=== PATIENT | female | born 1955 | race Caucasian/White ===

== ENCOUNTER 2017-01-21 11:15 | Emergency (ER) | payer OTHER ==
[~2017-01-21] VITALS: Ht 160 cm; Wt 81.6 kg
[~2017-01-21 11:15] MED LIST: BISOPROLOL FUMA1 TA4 PO; COUMADIN 7.5 M7.5 MG PO; CRESTOR 10MG10 MG PO; IRON325 M1 PO; PERCOCET 325 MG1 TA2 PO
--- NOTE | 2017-01-21 11:59 | ED UPPER/LOWER EXTREMITY COMPL ---
History of Present Illness General Chief Complaint: Shoulder Injury Stated Complaint: TRIPPEN AND FELL, SHOULDER PAIN Source: patient Exam Limitations: no limitations Vital Signs & Intake/Output Vital Signs & Intake/Output Vital Signs Date Time Temp Pulse Resp B/P Pulse O2 O2 Flow FiO2 Ox Delivery Rate 01/21 1127 99.7 67 20 156/85 97 Room Air Allergies Coded Allergies: NO KNOWN ALLERGIES (08/27/14) Reconcile Medications BISOPROLOL FUMARATE/HCTZ (Bisoprolol-Hctz 5-6.25 MG Tab) 1 EACH TABLET 1 TAB PO DAILY BLOOD PRESSURE (Reported) Ferrous Sulfate 325 MG (65 MG IRON) TABLET 1 TAB PO DAILY SUPPLEMENT ( Reported) Hydrocodone/Acetaminophen (Vicodin 5-300 MG Tablet) 5 MG-300 MG TABLET 1 TAB PO BID PRN pain OXYCODONE HCL/ACETAMINOPHEN (Percocet 5-325 MG Tablet) 325 MG/5 MG TAB 1-2 TAB PO Q4P PRN PAIN Rosuvastatin Calcium (Crestor) 10 MG TABLET 1 TAB PO DAILY CHOLESTEROL ( Reported) Warfarin Sodium (Coumadin) 7.5 MG TABLET 1 TAB PO DAILY BLOOD THINNER DOSE FOR INR 2-3 Triage Note: PT TO ED C/O RIGHT SHOULDER PAIN S/P TRIP AND FALL YESTERDAY. FELL ONTO RIGHT SHOULDER. PT TOOK TYLENOL WITH SOME RELIEF. HAS BEEN USING ICE AND HEAT WELL. DENIES HEADSTRIKE WITH TRIP AND FALL. +CMS, +PULSES. PLACED IN SLING IN TRIAGE. 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 Triage Nurses Notes Reviewed? yes Onset: Abrupt Duration: day(s): (1) Timing: no prior history Severity: moderate Severity Numbers: 8 Pain/Injury Location: Right: Shoulder. Method of Injury: fall Modifying Factors: Improves With: immobilization. Worsens With: movement. HPI: Patient is a 61-year-old female presenting to the emergency department with chief complaint of right shoulder pain has been going on since yesterday. Patient reports that she was walking outside accidentally stepped off the sidewalk and fell directly onto her right shoulder. Pain is moderate to severe worse with range of motion and palpation. Pain is achy and throbbing. She's been using [id number] Tylenol and Motrin without relief. Denies any head injury or loss of consciousness. No neck pain or back pain. Denies any radiation of the pain. Denies any numbness or tingling. No right hand pain, no right wrist pain, no right elbow pain. Past History Travel History Traveled to [place] past 21 day No Medical History Any Pertinent Medical History? see below for history Cardiovascular: hypertension History of MRSA: No History of VRE: No History of CDIFF: No Surgical History Surgical History: non-contributory Psychosocial History Who do you live with Spouse Services at Home None What is your primary language Portuguese Tobacco Use: Never used ETOH Use: denies use Illicit Drug Use: denies illicit drug use Family History Hx Contributory? No Review of Systems Review of Systems Constitutional: Reports: no symptoms. Comments Review of systems: See HPI, All other systems negative. Constitutional, no chills fever or weight loss HEENT: No visual changes no sore throat no congestion Cardiovascular: No chest pain ,palpitation Skin, no jaundice no rashes Respiratory: No dyspnea cough sputum or hemoptysis GI: No nausea no vomiting Muscle skeletal: no back pain, no neck pain, Neurologic: No numbness no confusion Psych: No stress anxiety Immunology: No splenectomy or history of AIDS Physical Exam Physical Exam General Appearance: well developed/nourished, no apparent distress, alert, awake , comfortable Comments: Well-developed well-nourished person in no acute distress HEENT: Nose is atraumatic. Neck: Supple, no lymphadenopathy, normal range of motion without pain or tenderness Back: Nontender Cardiovascular: Regular rate and rhythms no murmurs rubs or gallops, normal JVP Respiratory: Chest nontender. No respiratory distress.breath sounds clear to auscultation bilaterally Extremity: No edema, tenderness to palpation over the proximal humerus, minor ecchymosis noted in this area. Radial pulses are 2+ bilaterally. Limited range of motion of right shoulder secondary to pain. No pain to palpation of the right clavicle. No pain to palpation over the right acromioclavicular joint. Full range of motion of right wrist, right hand and right elbow. Neuro: Alert oriented x3, motor sensory normal Skin: No appreciable rash on exposed skin, skin is warm and dry. Psych: Mood and affect is normal, memory and judgment is normal. Progress Differential Diagnosis: contusion, dislocation, fracture, sprain, tendon injury Plan of Care: Patient was informed of x-ray results. Declined pain medication on arrival. She will be placed in a sling and follow-up with orthopedics. Neurovascularly intact. Diagnostic Imaging: Viewed by Me: Radiology Read. Discussed w/RAD: Radiology Read. Radiology Impression: PATIENT: FAUSTINO BOLDEN PRESENT AGE: 61 PATIENT ACCOUNT NO: [id number] : 55 LOCATION: [facility] ORDERING PHYSICIAN: IZABELLA LEON SERVICE DATE: 01/21/17 EXAM TYPE: RAD - XRY-HUMERUS, RIGHT; XRY-SHOULDER COMPLETE-RIGHT EXAMINATION: XR HUMERUS, RIGHT XR SHOULDER, RIGHT CLINICAL INFORMATION: Pain status post fall COMPARISON: None TECHNIQUE: 3 views of the right shoulder. 2 views, 4 images of the right humerus. FINDINGS: Right shoulder: There is an oblique fracture of the right proximal humeral metaphysis. There is an additional fracture through the anatomic neck of the humerus without significant displacement. There is inferior positioning of the humeral head in relation to the glenoid without dislocation. The acromioclavicular joint is intact. Right humerus: The proximal humeral fractures are again noted. No additional fractures are seen. Anatomic alignment at the elbow. The visualized lung is clear. IMPRESSION: 1. Obliquely oriented nondisplaced fracture of the proximal right humeral metaphysis. 2. Nondisplaced fracture through the anatomic neck of the right humerus. 3. Inferior subluxation of the humeral head in relation to the glenoid. DICTATED BY: NENO REDDY MD DATE/TIME DICTATED:01/21/17 123 FLIGHT ENGINEER:JARED Departure Departure Time of Disposition: 1242 Disposition: HOME OR SELF CARE Condition: Stable Clinical Impression Primary Impression: Humeral head fracture Qualifiers: Encounter type: initial encounter Fracture type: closed Laterality: right Qualified Code: S42.291A - Other displaced fracture of upper end of right humerus, initial encounter for closed fracture Referrals: KAYCE CARRION,ROSARIO PHILIP MD,SARBJIT (PCP/Family) Additional Instructions: Follow-up with orthopedics call to make an appointment. Wear sling until follow -up. Take Vicodin as prescribed for pain. Ice affected area. Departure Forms: Customer Survey General Discharge Information Prescriptions: Current Visit Scripts Hydrocodone/Acetaminophen (Vicodin 5-300 MG Tablet) 1 TAB PO BID PRN pain #15 TAB Procedures Splinting Location: right shoulder Manual Alignment Performed: No Pre-Made Type: velcro Splint: sling Splint Applied By: splint applied by other (nursing) Pre-Proc Neuro Vasc Exam: normal Post-Proc Neuro Vasc Exam: normal Progress: Patient tolerated procedure well.
--- NOTE | 2017-01-21 12:37 | RADIOLOGY REPORT ---
EXAMINATION: XR HUMERUS, RIGHT XR SHOULDER, RIGHT CLINICAL INFORMATION: Pain status post fall COMPARISON: None TECHNIQUE: 3 views of the right shoulder. 2 views, 4 images of the right humerus. FINDINGS: Right shoulder: There is an oblique fracture of the right proximal humeral metaphysis. There is an additional fracture through the anatomic neck of the humerus without significant displacement. There is inferior positioning of the humeral head in relation to the glenoid without dislocation. The acromioclavicular joint is intact. Right humerus: The proximal humeral fractures are again noted. No additional fractures are seen. Anatomic alignment at the elbow. The visualized lung is clear. IMPRESSION: 1. Obliquely oriented nondisplaced fracture of the proximal right humeral metaphysis. 2. Nondisplaced fracture through the anatomic neck of the right humerus. 3. Inferior subluxation of the humeral head in relation to the glenoid.
[2017-01-21] MEDS ORDERED: VICODIN 5-3001 EACH PO (12:59)
[2017-01-21 13:07] VITALS: BP 148/77
[2017-01-21] MEDS ORDERED: NORCO 5-325 TA1 EACH PO ×2 (13:48→13:56)
== END 2017-01-21 13:08 ==
LOC: ERH 11:15
DX: S42.291A Other displaced fracture of upper end of right humerus, initial encounter for closed fracture (principal); W19.XXXA Unspecified fall, initial encounter; Y93.01 Activity, walking, marching and hiking; Y92.480 Sidewalk as the place of occurrence of the external cause
CPT/HCPCS: 73030-RT; 73060-RT